=== PATIENT | female | born 1950 | race Caucasian/White ===

== ENCOUNTER → 2017-03-13 | Outpatient (CLI) | payer BC ==
[~2017-03-13] MED LIST: ATROVENTNS0.03% NS; BECONASE AQ NA42 MCG NAS; CLARINEX 5MG5 MG PO; MUCINEX 60600 MG/TA1 PO
== END ==
LOC: MC.RAD 11:00
DX: Z12.31 Encounter for screening mammogram for malignant neoplasm of breast (principal)

== ENCOUNTER 2018-03-09 06:57 | Day surgery (SDC) | payer MEDICARE, BC ==
[~2018-03-09] VITALS: Ht 165.1 cm; Wt 61.8 kg
[2018-03-09] MEDS ORDERED: DITROPAN XL 5MG5 M1 PO (07:27)
[2018-03-09] MEDS ORDERED: MIACALCIN NASA3.7 ML NS (07:29)
[2018-03-09] MEDS ORDERED: CALCITONIN NS (07:29)
[2018-03-09] MEDS ORDERED: MUCINEX PO (07:31)
[2018-03-09] MEDS ORDERED: ZYRTEC 10MG10 MG PO (07:31)
[2018-03-09 07:45] VITALS: BP 120/81; PULSE 88; TEMP 98.8
[2018-03-09 09:15] VITALS: BP 109/81; PULSE 94; TEMP 97.1
[2018-03-09 09:30] VITALS: BP 106/68; PULSE 88
[2018-03-09 09:45] VITALS: BP 106/68; PULSE 84
[2018-03-09 10:05] VITALS: BP 102/67; PULSE 81
== END 2018-03-09 10:26 | disposition home or self-care (01) ==
LOC: SDCO 06:57
DX: Z12.11 Encounter for screening for malignant neoplasm of colon (principal); Z86.010 Personal history of colon polyps; K63.5 Polyp of colon; K64.0 First degree hemorrhoids; M81.0 Age-related osteoporosis without current pathological fracture; Z79.899 Other long term (current) drug therapy
CPT/HCPCS: J2250; J3010; J7030

== ENCOUNTER → 2018-03-17 | Outpatient (CLI) | payer MEDICARE, BC ==
[~2018-03-17] MED LIST changes: +CALCITONIN NS; +DITROPAN XL 5MG5 M1 PO; +MIACALCIN NASA3.7 ML NS; +MUCINEX PO; +ZYRTEC 10MG10 MG PO
== END ==
LOC: MC.RAD 13:06
DX: Z12.31 Encounter for screening mammogram for malignant neoplasm of breast (principal)

== ENCOUNTER → 2019-04-15 | Outpatient (CLI) | payer MEDICARE, BC | LOC: MC.RAD 11:25 | DX: Z12.31 Encounter for screening mammogram for malignant neoplasm of breast (principal) ==

== ENCOUNTER → 2020-04-19 | Outpatient (CLI) | payer MEDICARE, BC | LOC: MC.RAD 09:29 | DX: Z12.31 Encounter for screening mammogram for malignant neoplasm of breast (principal) ==

== ENCOUNTER → 2021-07-01 | Outpatient (CLI) | payer MEDICARE, BC | LOC: MC.RAD 08:48 | DX: Z12.31 Encounter for screening mammogram for malignant neoplasm of breast (principal) ==

== ENCOUNTER → 2023-12-15 | Outpatient (CLI) | payer MEDICARE, BC | LOC: MC.RAD 08:55 | DX: Z12.31 Encounter for screening mammogram for malignant neoplasm of breast (principal) ==